=== PATIENT | male | born 2005 | race African-American/Black ===

== ENCOUNTER 2025-01-01 12:28 | Emergency (ER) | payer MEDICAID, SELFPAY ==
[2025-01-01 12:47] VITALS: BP 96/75; PULSE 67; TEMP 36.9; O2SAT 100; BMI 19.5
--- NOTE | 2025-01-01 13:13 | ED_ITS ---
HPI HPI - General Adult General Chief complaint: Upper Respiratory Infection Stated complaint: FLY SYMPTOMS Time Seen by Provider: 01/01/25 13:03 Source: patient Mode of arrival: walk-in Limitations: no limitations History of Present Illness HPI narrative: Patient is a 19-year-old male who presents to the emergency department with his younger brother and their mother for evaluation of runny nose, fever, vomiting and diarrhea with generalized abdominal pain, body aches for the last 2 days. Mother states his temperature has been like 101 or 102 . He complains of nausea and abdominal cramping. His brother is being evaluated for the same symptoms. No medications taken prior to arrival, he arrives afebrile Related Data Previous Rx's ?Medication ?Instructions ?Recorded hyoscyamine sulfate 0.125 mg 0.125 mg PO Q6H PRN abdominal pain 01/01/25 tablet (Levsin) #12 tabs ondansetron 4 mg disintegrating 4 mg PO Q6H PRN nausea and 01/01/25 tablet vomiting #12 tabs Allergies Allergy/AdvReac Type Severity Reaction Status Date / Time Penicillins Allergy Severe Anaphylaxis Verified 01/01/25 12:47 latex Allergy Mild Hives Verified 01/01/25 12:47 adhesive tape AdvReac Mild Hives Verified 01/01/25 12:47 Opioid HPI Opioid Management Most Recent Opioid Data: No Data to Display Review of Systems ROS Constitutional Reports: fever; Denies: chills Ears, nose, mouth, and throat Reports: nasal congestion; Denies: throat pain Cardiovascular Denies: chest pain Respiratory Denies: shortness of breath or cough Gastrointestinal Reports: abdominal pain, nausea, vomiting and diarrhea Musculoskeletal Denies: back pain Integumentary/Breast Denies: rash Hematologic/Lymphatic Denies: easy bruising or easy bleeding PFSH PFS Social History Little interest or pleasure in doing things: not at all Feeling down, depressed, or hopeless: not at all Exam Narrative Exam Narrative: Gen.: Awake, alert, in no distress Head: Normocephalic, atraumatic ENT: Moist mucous membranes, bilateral TMs clear, no pharyngeal erythema Respiratory: No respiratory distress, lungs clear bilaterally Cardio: Regular rate and rhythm Gastrointestinal: Abdomen is soft, nondistended and diffusely mildly tender to palpation with no guarding or rebound. No McBurney's point tenderness Extremities: Moves extremities equally Psych: Normal mood and affect Neuro: No focal neuro deficit Skin: Warm, dry, intact Constitutional Vital Signs, click to edit/add: Last Vital Signs Temp 98.4 F 01/01/25 12:47 Pulse 67 01/01/25 12:47 Resp 18 01/01/25 12:47 BP 96/75 01/01/25 12:47 Pulse Ox 100 01/01/25 12:47 O2 Del Method Room Air 01/01/25 12:47 Course Vital Signs Vital signs: Vital Signs Temperature 98.4 F 01/01/25 12:47 Pulse Rate 67 01/01/25 12:47 Respiratory Rate 18 01/01/25 12:47 Blood Pressure 96/75 01/01/25 12:47 Pulse Oximetry 100 01/01/25 12:47 Oxygen Delivery Method Room Air 01/01/25 12:47 Temperature 98.4 F 01/01/25 12:47 Pulse Rate 67 01/01/25 12:47 Respiratory Rate 18 01/01/25 12:47 Blood Pressure 96/75 01/01/25 12:47 Pulse Oximetry 100 01/01/25 12:47 Oxygen Delivery Method Room Air 01/01/25 12:47 Medical Decision Making MDM Narrative Medical decision making narrative: Patient medicated with Levsin, Zofran. Vital signs are stable in the ER and swabs are negative for COVID and influenza. Patient tolerated a popsicle with no difficulty in the ER. Continue Motrin and Tylenol at home for fever and bodyaches, patient prescribed Zofran and Levsin for abdominal cramping and nausea. Education and reassurance given. Continue to push fluids for home. R eturn to the ER if symptoms change or worsen. Abdomen is soft, benign at time of discharge. SUPERVISED APC VISIT, PHYSICIAN ATTESTATION: Based on the medical record the care appears appropriate. ? Medical Records Medical records reviewed: Yes I reviewed the patient's medical records Lab Data Lab results reviewed: Yes I reviewed the patient's lab results Labs: Lab Results 01/01/25 Range/Units 12:40 Influenza Type A Ag Negative Influenza Type B Ag Negative SARS-CoV-2 Ag (CV2AG) Negative (NEGATIVE) Discharge Plan Discharge Chief Complaint: Upper Respiratory Infection Clinical Impression: Flu-like symptoms, Vomiting and diarrhea Patient Disposition: Home, Self-Care Time of Disposition Decision: 13:43 Condition: Good Prescriptions / Home Meds: New hyoscyamine sulfate [Levsin] 0.125 mg tablet 0.125 mg PO Q6H PRN (Reason: abdominal pain) Qty: 12 0RF ondansetron 4 mg tablet,disintegrating 4 mg PO Q6H PRN (Reason: nausea and vomiting) Qty: 12 0RF Print Language: Lao Instructions: Acute Nausea and Vomiting (ED), Viral Syndrome (ED) Referrals: [facility] [Primary Care Provider] - 1 week
[2025-01-01] MEDS: ONDANSETRON 4 MG RAPDIS TABLET SL (13:29)
[2025-01-01] MEDS: HYOSCYAMINE SULFATE 0.125 MG TAB.SUBL SL (13:29)
[2025-01-01 13:38] LABS: Influenza Virus A Antigen Negative; Influenza Virus B Antigen Negative; Internal Control Within Normal Limits; SARS-CoV-2 Ag NEGATIVE (NEGATIVE)
== END 2025-01-01 13:59 | disposition home or self-care (01) ==
PROVIDERS: Physician Assistant; Emergency Provider Emergency Medicine
DX: R11.10 Vomiting, unspecified (principal); R19.7 Diarrhea, unspecified
CPT/HCPCS: 87804; 87811; 99283; Q0162